=== PATIENT | female | born 1960 | race Caucasian/White ===

== ENCOUNTER 2022-01-19 01:45 | Emergency (ER) | payer OTHER, SELFPAY ==
[2022-01-19 01:25] VITALS: BP 116/93; RESP 18; TEMP 36.8; O2SAT 95; BMI 41.1
[2022-01-19 02:00] VITALS: BP 163/99; PULSE 89; O2SAT 98
--- NOTE | 2022-01-19 02:23 | HMH.EDGENADL ---
ED Disposition Clinical Impression: Acute exacerbation of chronic low back pain Disposition: Home, Self-Care Condition on Discharge: Fair Instructions: DI for Low Back Pain, DI for Chronic Pain -- Adult, Activity May Be Better Than Rest for Low Back Pain Recovery Additional Instructions: You have been evaluated for low back pain. Please try nonnarcotic medication like Tylenol and ibuprofen. Use lidocaine patches. Take Percocet only as needed for severe pain. Follow-up with your primary care doctor this week as scheduled. Try stretching and strengthening exercises. Return to the emergency department at once for any new or worsening symptoms, fevers, worsening pain, numbness or weakness in your legs, difficulty walking or other concerns. Prescriptions: Oxycodone HCl/Acetaminophen [Percocet 10-325 mg Tablet] 1 tab PO Q6H PRN #6 tab PRN Reason: Severe Pain Transmission Status: Sent to [email or web address] Oxycodone HCl/Acetaminophen [Percocet 5/325mg tablet] 1 tab PO Q6H PRN #6 tab PRN Reason: Severe Pain Transmission Status[email or web address] Time of Disposition: 02:30 - Critical Care Critical Care Time: No Attestation: On , the high probability of a clinically significant, sudden or life threatening deterioration of the following system(s) required my full and direct attention, intervention and personal management. The time I documented below is in addition to time spent performing reported procedures but includes the following listed in this critical care notation. Medical Decision Making - Medical Records Medical records reviewed: Yes: I reviewed the patient's medical records. - Eligio Inquiry Pt receiving controlled substance: Yes Eligio was queried for this patient: Yes Risks and benefits of using a controlled substance: were discussed with pt by me Vital Signs: 01/19/22 01:25 Temperature 98.3 F Temperature Source Oral Respiratory Rate 18 Blood Pressure [Right Arm] 116/93 H Blood Pressure Mean [Right Arm] 100 Blood Pressure Position [Right Arm] Sitting 02 Sat by Pulse Oximetry 95 Oxygen Delivery Method Room Air - Lab Data Lab Results 01/19/22 02:30: Urine Color Yellow, Urine Appearance Clear, Urine pH 6.5, Ur Specific [place] 1.010, Urine Protein Negative, Urine Glucose (UA) Negative, Urine Ketones Negative, Urine Blood 2+, Urine Nitrate Negative, Urine Bilirubin Negative, Urine Urobilinogen 2.0, Ur Leukocyte Esterase Negative 01/19/22 02:30: WBC 5.7, RBC 3.59 L, Hgb 10.7 L, Hct 34.1 L, MCV 95.2, MCH 29.7, MCHC 31.2 L, RDW 14.4, Plt Count 330, MPV 7.9, Neut % (Auto) 70.6, Lymph % (Auto) 19.4, Cuming % (Auto) 5.8, Eos % (Auto) 3.3, Baso % (Auto) 1.0, Neut # (Auto) 4.0, Lymph # (Auto) 1.1, Cuming # (Auto) 0.3, Eos # (Auto) 0.2, Baso # (Auto) 0.1 01/19/22 02:30: Sodium 140, Potassium 3.6, Chloride 105, Carbon Dioxide 29, Anion Gap 9.6, BUN 9, Creatinine 0.90, Estimated Creat Clear 102, Estimated GFR 64, Est GFR ( Amer) 77, Glucose 106 H, Calcium 9.1, Total Bilirubin 0.6, AST 26, ALT 17, Alkaline Phosphatase 130 H, Total Protein 6.6, Albumin 3.9, Globulin 2.7, Albumin/Globulin Ratio 1.4 Result diagrams: 01/19/22 02:30 01/19/22 02:30 Orders (Tests/Meds): ED MEDICATIONS Discontinued Medications Generic Name Dose Route Start Last Admin Trade Name Freq PRN Reason Stop Dose Admin Oxycodone/Acetaminophen 1 each 01/19/22 01:29 01/19/22 01:56 Oxycodone 10mg W/Apap 325mg Tablet PO 01/19/22 01:30 1 each ONCE ONE Administration ORDERS Category Date Time Status Urinalysis and Microscopic Stat Lab 01/19/22 02:30 Results Medical Decision Narrative: In summary this is a 61-year-old female with history of chronic back pain and opiate dependence presenting to the emergency department with uncontrolled pain. Patient clinically stable on arrival. Vital signs within normal limits. Most likely diagnosis is acute on chronic pain. Will obtain screening CBC, CM
--- NOTE | 2022-01-19 02:23 | PC.NURSE ---
PT AWARE OF NEED FOR URINE SPECIMEN. PT STATES SHE CAN NOT VOID.
--- NOTE | 2022-01-19 02:25 | PC.NURSE ---
Pt called out to use the restroom, set up hat in toilet and pt ambulated to the BR and tolerated well.
[2022-01-19 02:28] VITALS: BP 184/98; PULSE 84; O2SAT 98
[2022-01-19 02:30] VITALS: BP 172/92; PULSE 84; O2SAT 98
[2022-01-19 02:45] LABS: Microscopic, Urine URINE MICROSCOPIC (MICROSCOPIC)
[2022-01-19 02:48] LABS: Basophils # 0.1 K/mm3 (0-0.2); Eosinophils # 0.2 K/mm3 (0.0-0.4); Eosinophils % 3.3 % (0.1-12.0); Hematocrit 34.1 % (37.0-47.0); Hemoglobin 10.7 g/dL (12.2-16.2); Lymphocytes # 1.1 K/mm3 (0.7-4.5); Lymphocytes % 19.4 % (10-50); Mean Corpuscular HGB Conc 31.2 g/dL (31.8-35.4); Mean Corpuscular Hemoglobin 29.7 pg (27.0-31.2); Mean Corpuscular Volume 95.2 fl (81-99); Mean Platelet Volume 7.9 fl (7.4-10.4); Monocytes # 0.3 K/mm3 (0.1-1.0); Monocytes % 5.8 % (1.7-9.3); Neutrophils % 70.6 % (37.0-80.0); Platelet Count 330 K/mm3 (142-424); Red Blood Count 3.59 M/mm3 (4.20-5.40); Red Cell Distribution Width 14.4 % (11.5-17.5); White Blood Count 5.7 K/mm3 (4.8-10.8)
[2022-01-19 02:50] LABS: Appearance,Urine CLEAR (Clear); Bilirubin,Urine Negative (Negative); Blood, Urine 2+ (Negative); Color,Urine YELLOW (Yellow); Glucose,Urine (UA) Negative (Negative); Ketones,Urine Negative (Negative); Leukocyte Esterase,Urine Negative (Negative); Nitrate,Urine Negative (Negative); PH,Urine 6.5 (5.0-8.5); Protein,Urine Negative (Negative)
[2022-01-19 02:51] LABS: Chloride 105 mmol/L (98-107); Potassium 3.6 mmoL/L (3.5-5.1); Sodium 140 mmol/L (136-145)
[2022-01-19 02:53] LABS: Blood Urea Nitrogen 9 mg/dl (7-17); Creatinine Clearance Estimated 102 mL/min (50-200); Estimated Glomerular Filt Rate 64 ml/min (>60); GFR (African American) 77 ML/MIN (>60)
[2022-01-19 02:54] LABS: Alanine Aminotransferase 17 U/L (12-78); Albumin Level 3.9 g/dl (3.5-5.0); Albumin/Globulin Ratio 1.4 (1.1-1.8); Alkaline Phosphatase 130 U/L (38-126); Anion Gap 9.6 mEq/L (5-15); Aspartate Amino Transferase 26 U/L (14-36); Bilirubin,Total 0.6 mg/dl (0.2-1.3); Carbon Dioxide 29 mmol/L (22.0-30.0); Globulin 2.7 g/dL (1.3-3.2); Total Protein,Serum 6.6 g/dl (6.3-8.2)
[2022-01-19 02:55] LABS: Calcium 9.1 mg/dl (8.4-10.2); Glucose 106 mg/dl (74-100)
[2022-01-19 03:01] VITALS: BP 147/87; PULSE 79; O2SAT 95
--- NOTE | 2022-01-19 03:02 | PC.NURSE ---
PT STATES PAIN HAS IMPROVED. RATES 5/10 AT THIS TIME. PT REPORTS THIS IS HER NORMAL LEVEL OF PAIN.
[2022-01-19 03:20] LABS: Bacteria,Urine 1+ /lpf; RBC,Urine TNTC #/hpf (0-3)
[2022-01-19 03:58] VITALS: BP 148/73; PULSE 87; RESP 18; TEMP 36.6; O2SAT 97
== END 2022-01-19 04:00 | disposition home or self-care (01) ==
LOC: ER 02:57
PROVIDERS: Emergency Provider Emergency Medicine; PCP Emergency Medicine
DX: M54.50 Low back pain, unspecified (principal); G89.29 Other chronic pain; M79.662 Pain in left lower leg; F11.20 Opioid dependence, uncomplicated; Z79.01 Long term (current) use of anticoagulants; Z79.82 Long term (current) use of aspirin; Z79.899 Other long term (current) drug therapy; Z88.0 Allergy status to penicillin; Z88.1 Allergy status to other antibiotic agents; Z88.2 Allergy status to sulfonamides; Z88.3 Allergy status to other anti-infective agents; Z88.8 Allergy status to other drugs, medicaments and biological substances; Z91.041 Radiographic dye allergy status
CPT/HCPCS: 80053; 81001; 85025; 99283

== ENCOUNTER → 2022-01-25 10:03 | Outpatient (CLI) | payer OTHER, SELFPAY ==
[2022-01-22 17:42] LABS: Amphetamine/Metha Screen,Urine Negative ng/ml (<1000)
[2022-01-22 17:43] LABS: Barbiturates Screen,Urine Negative ng/ml (<200); Benzodiazepines Screen,Urine Negative ng/ml (<200)
[2022-01-22 17:44] LABS: Cannabinoid Screen,Urine Negative ng/ml (<50)
[2022-01-22 17:45] LABS: Cocaine Screen,Urine Negative ng/ml (<300); Methadone Screen,Urine Negative ng/ml (<300)
[2022-01-22 17:46] LABS: Opiate Screen,Urine Positive ng/ml (<300)
[2022-01-22 17:47] LABS: Phencyclidine Screen,Urine Negative ng/ml (<25)
[2022-01-25 11:01] LABS: Basophils # 0.1 K/mm3 (0-0.2); Basophils % 1.4 % (0.1-2.0); Eosinophils # 0.1 K/mm3 (0.0-0.4); Eosinophils % 2.1 % (0.1-12.0); Hematocrit 35.4 % (37.0-47.0); Hemoglobin 11.2 g/dL (12.2-16.2); Lymphocytes # 0.8 K/mm3 (0.7-4.5); Lymphocytes % 15.9 % (10-50); Mean Corpuscular HGB Conc 31.7 g/dL (31.8-35.4); Mean Corpuscular Hemoglobin 29.9 pg (27.0-31.2); Mean Corpuscular Volume 94.2 fl (81-99); Mean Platelet Volume 7.8 fl (7.4-10.4); Monocytes # 0.2 K/mm3 (0.1-1.0); Neutrophils # 3.8 K/mm3 (1.8-7.8); Neutrophils % 76.6 % (37.0-80.0); Platelet Count 380 K/mm3 (142-424); Red Blood Count 3.76 M/mm3 (4.20-5.40); Red Cell Distribution Width 14.8 % (11.5-17.5); White Blood Count 4.9 K/mm3 (4.8-10.8)
[2022-01-25 11:11] LABS: INR 1.79 (0.9-1.1); Prothrombin Time 19.4 seconds (10.1-12.5)
[2022-01-25 11:15] LABS: Alanine Aminotransferase 18 U/L (12-78); Albumin Level 4.2 g/dl (3.5-5.0); Albumin/Globulin Ratio 1.6 (1.1-1.8); Alkaline Phosphatase 161 U/L (38-126); Anion Gap 11.9 mEq/L (5-15); Aspartate Amino Transferase 27 U/L (14-36); Blood Urea Nitrogen 9 mg/dl (7-17); Calcium 9.8 mg/dl (8.4-10.2); Carbon Dioxide 31 mmol/L (22.0-30.0); Chloride 100 mmol/L (98-107); Chol/HDL Ratio 2.6 (1-3.5); Cholesterol 109 mg/dl (140-200); Estimated Glomerular Filt Rate 73 ml/min (>60); GFR (African American) 88 ML/MIN (>60); Globulin 2.6 g/dL (1.3-3.2); Glucose 112 mg/dl (74-100); HDL Cholesterol 42 mg/dl (40-60); Potassium 3.9 mmoL/L (3.5-5.1); Sodium 139 mmol/L (136-145); Total Protein,Serum 6.8 g/dl (6.3-8.2); Triglycerides 75 mg/dl (30-150); VLDL Cholesterol 15 mg/dL (0-40)
[2022-01-25 11:27] LABS: Direct LDL Cholesterol 49.55 mg/dL (100-129)
[2022-01-25 11:33] LABS: 25-OH Vitamin D, Total 20.2 ng/mL (30-100)
[2022-01-25 11:34] LABS: T4 (Thyroxine) 11.4 ug/dl (5.53-11.0)
[2022-01-25 11:47] LABS: Thyroid Stimulating Hormone 2.65 uIU/mL (0.465-4.68)
== END ==
PROVIDERS: Visit Provider Nurse Practitioner Family
DX: Z00.00 Encounter for general adult medical examination without abnormal findings (principal); M54.50 Low back pain, unspecified; M79.605 Pain in left leg; E55.9 Vitamin D deficiency, unspecified; Z79.899 Other long term (current) drug therapy
CPT/HCPCS: 36415; 80053; 80061; 80305; 82306; 84436; 84443; 85025; 85610

== ENCOUNTER 2022-02-01 13:07 | Outpatient (CLI) | payer OTHER, SELFPAY ==
[2022-02-01 14:02] LABS: PHA INR Fingerstick 1.6 (0.9-1.1)
== END 2022-02-01 14:04 | disposition home or self-care (01) ==
LOC: ACC 13:09
PROVIDERS: PCP Emergency Medicine; Visit Provider Emergency Medicine
DX: Z51.81 Encounter for therapeutic drug level monitoring (principal); Z79.01 Long term (current) use of anticoagulants; I48.91 Unspecified atrial fibrillation
CPT/HCPCS: 85610; 99211; G0463

== ENCOUNTER 2022-02-08 14:16 | Outpatient (CLI) | payer OTHER, SELFPAY ==
[2022-02-08 15:42] LABS: PHA INR Fingerstick 1.9 (0.9-1.1)
== END 2022-02-08 15:51 | disposition home or self-care (01) ==
LOC: ACC 14:19
PROVIDERS: PCP Emergency Medicine; Visit Provider Nurse Practitioner Family
DX: Z51.81 Encounter for therapeutic drug level monitoring (principal); Z79.01 Long term (current) use of anticoagulants; I48.91 Unspecified atrial fibrillation
CPT/HCPCS: 85610; 99211; G0463

== ENCOUNTER 2022-02-16 13:10 | Outpatient (CLI) | payer OTHER, SELFPAY ==
--- NOTE | 2022-03-02 11:12 | HMH.PHAINT ---
ACC-PATIENT CALLED YESTERDAY ABOUT APPOINTMENT ON 03/02/22. PATIENT CURRENTLY LIVING IN [place] WITH FRIENDS AND CAN NOT GET RIDE TO [place]. PATIENT HAD SPOKEN WITH MD OFFICE ABOUT THIS AND WAS TOLD TO FIND A PLACE IN [place] TO GET INR CHECKED PER PATIENT.
== END 2022-02-16 13:57 | disposition home or self-care (01) ==
LOC: ACC 13:11
PROVIDERS: PCP Emergency Medicine; Visit Provider Nurse Practitioner Family
DX: Z51.81 Encounter for therapeutic drug level monitoring (principal); Z79.01 Long term (current) use of anticoagulants; I48.91 Unspecified atrial fibrillation
CPT/HCPCS: 85610; 99211; G0463

== ENCOUNTER → 2022-02-23 10:18 | Outpatient (CLI) | payer OTHER, SELFPAY ==
--- NOTE | 2022-02-23 10:18 | MM_ITS ---
PROCEDURE INFORMATION: Exam: Bilateral Screening 3D Mammography Exam date and time: 02/23/2022 10:18 AM Age: 61 years old Clinical indication: Screening examination TECHNIQUE: Imaging protocol: Bilateral Screening tomosynthesis and 2D mammography including computer-aided detection (CAD) when performed. COMPARISON: MAMMO DIGITAL SCREENING BILATERAL W CAD 01/26/2021 5:54 PM FINDINGS: MAMMOGRAPHY: Breast composition: The breasts are heterogeneously dense, which may obscure small masses. Mass: No suspicious masses. Architectural distortion: No suspicious distortion. Calcifications: No suspicious calcifications. Asymmetric density: None. Skin thickening: None. Axillary adenopathy: None. IMPRESSION: No mammographic evidence of malignancy. Annual screening is recommended unless otherwise clinically indicated. ASSESSMENT: BI-RADS Category 1: Negative
== END ==
PROVIDERS: PCP Emergency Medicine; Visit Provider Emergency Medicine
DX: Z12.31 Encounter for screening mammogram for malignant neoplasm of breast (principal)
CPT/HCPCS: 77063; 77067

== ENCOUNTER 2022-11-09 13:11 | Emergency (ER) | payer OTHER, SELFPAY ==
[2022-11-09 13:11] VITALS: BP 162/79; PULSE 98; RESP 19; TEMP 36.6; O2SAT 97; BMI 41.6
--- NOTE | 2022-11-09 13:44 | XR_ITS ---
FINAL REPORT CLINICAL HISTORY: pain FINDINGS: Left shoulder Four views were obtained. There is mild AC joint degenerative change. There is irregularity of the greater tuberosity, small subacute fracture is not excluded. There is inferior subluxation of the humerus, may represent a joint effusion. IMPRESSION: Irregularity of the greater tuberosity, small subacute fracture is not excluded. Reviewed, Interpreted and Dictated by Dereje Black III, MD Transcribed by Mariana Mota Authenticated and [facility]
--- NOTE | 2022-11-09 14:47 | PC.NURSE ---
contacted rad to check on status of xray results, states sending preliminary down at this time.
--- NOTE | 2022-11-09 14:47 | HMH.EDGENADL ---
Discharge Plan Disposition Patient Disposition: Home, Self-Care Condition: Fair Prescriptions Prescriptions: No Action gabapentin 600 mg tablet 600 mg PO TID Qty: 90 1RF oxycodone-acetaminophen 10-325 mg tablet 1 tab PO TID Qty: 90 0RF cyclobenzaprine 10 mg tablet 10 mg PO TID Qty: 90 2RF folic acid 1 mg tablet 1 mg PO DAILY Qty: 90 0RF polyethylene glycol 3350 [Miralax] 17 gram/dose powder 17 g PO DAILY Qty: 238 3RF cyanocobalamin (vitamin B-12) 1,000 mcg/mL solution 100 mcg SQ QMONTH Qty: 10 1RF polyethylene glycol 3350 [Miralax] 17 gram/dose powder 17 g PO DAILY Qty: 510 0RF warfarin 7.5 mg tablet See Rx Instructions .ROUTE .COMPLEX Qty: 30 1RF Dose Instruction: TAKE 1 TABLET DAILY OR DIRECTED Rx Instructions: TAKE 1 TABLET DAILY OR DIRECTED spironolactone 25 mg tablet See Rx Instructions .ROUTE .COMPLEX Qty: 90 0RF Dose Instruction: TAKE ONE TABLET BY MOUTH DAILY Rx Instructions: TAKE ONE TABLET BY MOUTH DAILY atorvastatin 40 mg tablet See Rx Instructions .ROUTE .COMPLEX Qty: 90 0RF Dose Instruction: TAKE ONE TABLET BY MOUTH DAILY Rx Instructions: TAKE ONE TABLET BY MOUTH DAILY aspirin 81 mg tablet,delayed release (DR/EC) See Rx Instructions .ROUTE .COMPLEX Qty: 90 0RF Dose Instruction: TAKE ONE TABLET BY MOUTH DAILY Rx Instructions: TAKE ONE TABLET BY MOUTH DAILY allopurinol 100 mg tablet See Rx Instructions .ROUTE .COMPLEX Qty: 90 0RF Dose Instruction: TAKE ONE TABLET BY MOUTH DAILY Rx Instructions: TAKE ONE TABLET BY MOUTH DAILY pantoprazole 40 mg tablet,delayed release (DR/EC) See Rx Instructions .ROUTE .COMPLEX Qty: 30 2RF Dose Instruction: TAKE ONE TABLET BY MOUTH DAILY Rx Instructions: TAKE ONE TABLET BY MOUTH DAILY Referrals Follow up/Referrals: Alexander Huffman APRN [Primary Care Provider] - See instructions Activity Restrictions/Add. Instructions Additional Instructions/Restrictions: Follow-up with orthopedics, they will call you or you can call them to schedule an appointment. You will require an MRI of your left shoulder. Have them review the MR concerns on your medical card you should today. If you have any other concerning signs or symptoms, return to the ER for further evaluation. Clinical Impressions Clinical Impression: Hemarthrosis of left shoulder Discharge ED Provider: Manan Andersen General Adult HPI General Chief complaint: PAIN Stated complaint: LT shoulder pain Time Seen by Provider: 11/09/22 13:25 Mode of Arrival: Ambulatory Source of Information: Patient Limitations: No Limitations Description of Symptoms (Recalled from ER Triage Doc. by RN): 62 F presents with left shoulder pain/swelling after having a dislocation on Tuesday. This was reduced at [facility] ER and patient was discharged home. As of this afternoon she reports increased pain, decreased ROM, and increased swelling. Negative ecchymosis. Positive pulses present History of Present Illness HPI narrative: This is a 62-year-old female with history of hyperlipidemia, obesity, mechanical heart valve replacement currently on warfarin presenting with left shoulder pain. Patient states that left shoulder pain began acutely on 11/02, she was seen in outside hospital where she was told it was dislocated and they were able to put it back in place. Since that time, she has discharged with oxycodone and has been dealing with pain. She has had significantly worsening pain since that time that has been refractory to oxycodone. Denies any other trauma, neurologic deficits, or any other concerns at this time. Related Data Previous Rx's Medication Instructions Recorded gabapentin 600 mg tablet 600 mg PO TID #90 tabs 02/01/22 oxycodone-acetaminophen 10 mg-325 1 tab PO TID #90 tabs 02/01/22 mg tablet cyclobenzaprine 10 mg tablet 10 mg PO TID #90 tabs 02/04/22 folic ac
[2022-11-09 14:48] VITALS: BP 143/76; PULSE 93; RESP 18; O2SAT 96
--- NOTE | 2022-11-09 14:48 | CT_ITS ---
FINAL REPORT CLINICAL HISTORY: disloaction, concern for fracture vs hemarthrosis FINDINGS: Technique: Axial images through the left shoulder were performed by computed tomography. Sagittal and coronal reconstruction images were performed. This study was performed with techniques to keep radiation doses as low as reasonably achievable (ALARA). Individualized dose reduction techniques using automated exposure control or adjustment of mA and/or kV according to the patient's size were employed. No fracture is identified. No dislocation identified. There are mild degenerative changes. There is a moderate probable joint effusion. There is a 6.5 cm mass deep to the anterior deltoid that may represent a hematoma or neoplasm. The subscapularis muscle is enlarged with a possible mass in or adjacent to it a could represent hemorrhage versus fluid collection. IMPRESSION: No acute fracture. Probable moderate joint effusion. 6.5 cm mass deep to the anterior deltoid could represent hematoma or neoplasm. Hemorrhage versus fluid collection in or adjacent to an enlarged subscapularis muscle. This could be further evaluated with MRI shoulder without contrast. Reviewed, Interpreted and Dictated by Dereje Black III, MD Transcribed by Jerry Leblanc Authenticated and [facility]
--- NOTE | 2022-11-09 14:55 | PC.NURSE ---
rad notified of ct order
--- NOTE | 2022-11-09 15:12 | PC.NURSE ---
pt back from rad
[2022-11-09 15:17] LABS: Basophils # 0.1 K/mm3 (0-0.2); Basophils % 0.7 % (0.1-2.0); Eosinophils # 0.4 K/mm3 (0.0-0.4); Eosinophils % 4.4 % (0.1-12.0); Hematocrit 38.1 % (37.0-47.0); Hemoglobin 12.6 g/dL (12.2-16.2); Lymphocytes # 1.2 K/mm3 (0.7-4.5); Lymphocytes % 12.3 % (10-50); Mean Corpuscular HGB Conc 33.1 g/dL (31.8-35.4); Mean Corpuscular Hemoglobin 29.9 pg (27.0-31.2); Mean Corpuscular Volume 90.1 fl (81-99); Monocytes # 0.7 K/mm3 (0.1-1.0); Monocytes % 7.2 % (1.7-9.3); Neutrophils # 7.1 K/mm3 (1.8-7.8); Neutrophils % 75.4 % (37.0-80.0); Platelet Count 438 K/mm3 (142-424); Red Blood Count 4.23 M/mm3 (4.20-5.40); Red Cell Distribution Width 16.2 % (11.5-17.5); White Blood Count 9.5 K/mm3 (4.8-10.8)
[2022-11-09 15:49] LABS: Chloride 99 mmol/L (98-107); Potassium 4.1 mmoL/L (3.5-5.1); Sodium 135 mmol/L (136-145)
[2022-11-09 15:52] LABS: Anion Gap 10.1 mEq/L (5-15); Blood Urea Nitrogen 18 mg/dl (7-17); Carbon Dioxide 30 mmol/L (22.0-30.0); Creatinine Clearance Estimated 59 mL/min (50-200); Estimated Glomerular Filt Rate 73 ml/min (>60); GFR (African American) 88 ML/MIN (>60)
[2022-11-09 15:53] LABS: Calcium 9.2 mg/dl (8.4-10.2); Glucose 104 mg/dl (74-100)
[2022-11-09 16:47] VITALS: BP 123/90; PULSE 71; RESP 19; TEMP 36.8; O2SAT 97
== END 2022-11-09 17:09 | disposition home or self-care (01) ==
PROVIDERS: Emergency Provider Emergency Medicine; PCP Nurse Practitioner Family
DX: M25.012 Hemarthrosis, left shoulder (principal); E78.5 Hyperlipidemia, unspecified; Z79.01 Long term (current) use of anticoagulants; Z82.49 Family history of ischemic heart disease and other diseases of the circulatory system; F17.210 Nicotine dependence, cigarettes, uncomplicated
CPT/HCPCS: 36415; 73030; 73200; 80048; 85025; 96374; 99285

== ENCOUNTER 2023-01-12 15:13 | Outpatient (CLI) | payer OTHER, SELFPAY ==
--- NOTE | 2023-01-12 15:41 | MR_ITS ---
PROCEDURE INFORMATION: Exam: MR Lumbar Spine Without Contrast Exam date and time: 01/12/2023 4:04 PM Age: 62 years old Clinical indication: Low back pain; Additional info: Back pain x 30 years. TECHNIQUE: Imaging protocol: Magnetic resonance imaging of the lumbar spine without contrast. COMPARISON: No relevant prior studies available. FINDINGS: Bones/joints: There is preservation of vertebral alignment. There is preservation of vertebral body heights. No marrow replacing process. There is mild bilateral neural foraminal narrowing. Spinal cord: Conus medullaris and cauda equina nerve roots are unremarkable T12-L1: Diffuse disc bulge and facet arthropathy noted. No significant spinal canal stenosis. There is no significant neural foraminal narrowing. L1-L2: Caudally migrated central disc protrusion disc bulge and facet arthropathy noted. The right lateral recess is narrowed. No significant spinal canal stenosis. There is moderate bilateral neural foraminal narrowing. L2-L3: Diffuse disc bulge and facet arthropathy noted. There is mild spinal canal stenosis. L3-L4: Diffuse disc bulge and facet arthropathy noted. No significant spinal canal stenosis. There is no significant neural foraminal narrowing. L4-L5: Diffuse disc bulge and facet arthropathy noted. No significant spinal canal stenosis. There is mild bilateral neural foraminal narrowing. L5-S1: Diffuse disc bulge and facet arthropathy noted. No significant spinal canal stenosis. There is no significant neural foraminal narrowing. Soft tissues: Unremarkable. IMPRESSION: Multilevel degenerative changes more pronounced at L1-L2, where there is a caudally migrated disc protrusion and moderate bilateral neural foramina narrowing.
[2023-01-12 15:52] LABS: PHA INR Fingerstick 1.9 (0.9-1.1)
== END 2023-01-12 15:56 ==
LOC: RAD 15:15
PROVIDERS: PCP Emergency Medicine; Visit Provider Emergency Medicine
DX: M54.50 Low back pain, unspecified (principal); Z51.81 Encounter for therapeutic drug level monitoring; Z79.01 Long term (current) use of anticoagulants
CPT/HCPCS: 72148; 76376; 85610; 99211; G0463

== ENCOUNTER 2023-01-26 14:14 | Outpatient (CLI) | payer OTHER, SELFPAY ==
[2023-01-26 15:06] LABS: PHA INR Fingerstick 2.8 (0.9-1.1)
== END 2023-01-26 15:09 ==
LOC: ACC 14:15
PROVIDERS: PCP Emergency Medicine; Visit Provider Emergency Medicine
DX: Z51.81 Encounter for therapeutic drug level monitoring (principal); Z79.01 Long term (current) use of anticoagulants; I48.91 Unspecified atrial fibrillation
CPT/HCPCS: 85610; 99211; G0463

== ENCOUNTER 2023-02-17 10:54 | Outpatient (CLI) | payer OTHER, SELFPAY ==
[2023-02-17 15:32] LABS: PHA INR Fingerstick 3.4 (0.9-1.1)
== END 2023-02-17 15:36 ==
LOC: ACC 10:54
PROVIDERS: PCP Emergency Medicine; Visit Provider Emergency Medicine
DX: Z51.81 Encounter for therapeutic drug level monitoring (principal); Z79.01 Long term (current) use of anticoagulants; I48.91 Unspecified atrial fibrillation
CPT/HCPCS: 85610; 99211; G0463

== ENCOUNTER → 2023-03-14 23:35 | Outpatient (CLI) | payer OTHER, SELFPAY ==
[2023-03-14 20:59] LABS: Amphetamine/Metha Screen,Urine Negative ng/ml (<1000)
[2023-03-14 21:00] LABS: Barbiturates Screen,Urine Negative ng/ml (<200)
[2023-03-14 21:04] LABS: Benzodiazepines Screen,Urine Negative ng/ml (<200); Cannabinoid Screen,Urine Negative ng/ml (<50)
[2023-03-14 21:05] LABS: Cocaine Screen,Urine Negative ng/ml (<300); Methadone Screen,Urine Negative ng/ml (<300)
[2023-03-14 21:06] LABS: Opiate Screen,Urine Negative ng/ml (<300)
[2023-03-14 21:07] LABS: Phencyclidine Screen,Urine Negative ng/ml (<25)
== END ==
PROVIDERS: PCP Emergency Medicine; Visit Provider Emergency Medicine
DX: N39.0 Urinary tract infection, site not specified (principal); Z79.899 Other long term (current) drug therapy
CPT/HCPCS: 80305; 87086

== ENCOUNTER 2023-03-27 21:06 | Emergency (ER) | payer OTHER, SELFPAY ==
--- NOTE | 2023-03-27 21:04 | ECG_ITS ---
APPROVED REPORT Exam: Resting ECG HR:79 bpm ECG Measurements Heart Rate 79 AXES DC 213 P 104 QRSd 102 QRS 96 QT 419 T 90 QTc 454 Conclusion SINUS RHYTHM WITH FIRST DEGREE AV BLOCK WITH OCCASIONAL SUPRAVENTRICULAR PREMATURE COMPLEX ABNORMAL ECG UNCONFIRMED REPORT Electronically signed by : Jersey Padron MD 03/28/2023 14:01:49
[2023-03-27 21:06] VITALS: BP 119/68; PULSE 75; RESP 19; TEMP 36.8; O2SAT 93; BMI 44.1
--- NOTE | 2023-03-27 21:12 | PC.NURSE ---
Pt provided with pillow and warm blanket
--- NOTE | 2023-03-27 21:20 | XR_ITS ---
PROCEDURE INFORMATION: Exam: XR Chest Exam date and time: 03/27/2023 9:31 PM Age: 63 years old Clinical indication: Other: Syncope TECHNIQUE: Imaging protocol: Radiologic exam of the chest. Views: 1 view. COMPARISON: CR CXR CHEST(2 VIEWS-NOT PORTABLE) 08/24/2016 11:03 AM FINDINGS: Lungs: There is mild right lower lobe infiltrate versus atelectasis. Left lung is clear. Pleural spaces: There has developed small right pleural effusion. Heart/Mediastinum: Cardiac silhouette is normal in size for technique Bones/joints: Sternotomy wires and prosthetic heart valve remain in place. IMPRESSION: Small right pleural effusion with mild right lower lobe infiltrate versus atelectasis
--- NOTE | 2023-03-27 21:20 | CT_ITS ---
PROCEDURE INFORMATION: Exam: CT Head Without Contrast Exam date and time: 03/27/2023 9:42 PM Age: 63 years old Clinical indication: Other: Syncope TECHNIQUE: Imaging protocol: Computed tomography of the head without contrast. Radiation optimization: All CT scans at this facility use at least one of these dose optimization techniques: automated exposure control; mA and/or kV adjustment per patient size (includes targeted exams where dose is matched to clinical indication); or iterative reconstruction. REPORTING DATA: Count of CT and Cardiac NM exams in prior 12 months: This patient has received [address] and 0 known cardiac nuclear medicine studies in the 12 months prior to the current study. COMPARISON: No relevant prior studies available. FINDINGS: Brain: Normal. No hemorrhage. Unremarkable white matter. No mass effect. Cerebral ventricles: No ventriculomegaly. Paranasal sinuses: Visualized sinuses are unremarkable. No fluid levels. Mastoid air cells: Visualized mastoid air cells are well aerated. Bones/joints: Unremarkable. No acute fracture. Soft tissues: Unremarkable. IMPRESSION: No acute intracranial abnormality.
[2023-03-27 21:29] LABS: Basophils % 0.4 % (0.1-2.0); Eosinophils # 0.1 K/mm3 (0.0-0.4); Eosinophils % 1.6 % (0.1-12.0); Hematocrit 40.5 % (37.0-47.0); Hemoglobin 12.2 g/dL (12.2-16.2); Lymphocytes # 0.6 K/mm3 (0.7-4.5); Mean Corpuscular HGB Conc 30.2 g/dL (31.8-35.4); Mean Corpuscular Hemoglobin 29.4 pg (27.0-31.2); Mean Corpuscular Volume 97.3 fl (81-99); Mean Platelet Volume 8.2 fl (7.4-10.4); Monocytes # 0.3 K/mm3 (0.1-1.0); Monocytes % 5.2 % (1.7-9.3); Neutrophils # 4.1 K/mm3 (1.8-7.8); Neutrophils % 80.8 % (37.0-80.0); Platelet Count 225 K/mm3 (142-424); Red Blood Count 4.16 M/mm3 (4.20-5.40); Red Cell Distribution Width 17.6 % (11.5-17.5)
--- NOTE | 2023-03-27 21:33 | PC.NURSE ---
Pt gone to RAD via stretcher
[2023-03-27 21:35] LABS: Microscopic, Urine URINE MICROSCOPIC (MICROSCOPIC)
--- NOTE | 2023-03-27 21:35 | PC.NURSE ---
Standby assist to bedside commode. Patient mostly steady up and down. Denies feelings of dizziness when moving; however, has more SOA
[2023-03-27 21:37] LABS: Appearance,Urine SL CLOUDY (Clear); Blood, Urine 3+ (Negative); Color,Urine DK YELLOW (Yellow); Glucose,Urine (UA) TRACE (Negative); Ketones,Urine Negative (Negative); Leukocyte Esterase,Urine Negative (Negative); Nitrate,Urine Negative (Negative); Protein,Urine 2+ (Negative); Urobilinogen,Urine >=8.0 EU/dl (0.2)
[2023-03-27 21:38] LABS: Bilirubin,Urine 1+ (Negative)
[2023-03-27 21:42] LABS: Alanine Aminotransferase 20 U/L (12-78); Albumin Level 3.9 g/dl (3.5-5.0); Albumin/Globulin Ratio 1.1 (1.1-1.8); Alkaline Phosphatase 208 U/L (38-126); Aspartate Amino Transferase 39 U/L (14-36); Bilirubin,Total 1.6 mg/dl (0.2-1.3); Blood Urea Nitrogen 12 mg/dl (7-17); Calcium 9.5 mg/dl (8.4-10.2); Carbon Dioxide 28 mmol/L (22.0-30.0); Chloride 104 mmol/L (98-107); Creatinine Clearance Estimated 58 mL/min (50-200); Estimated Glomerular Filt Rate 56 ml/min (>60); GFR (African American) 68 ML/MIN (>60); Globulin 3.7 g/dL (1.3-3.2); Glucose 139 mg/dl (74-100); Sodium 139 mmol/L (136-145); Total Protein,Serum 7.6 g/dl (6.3-8.2)
[2023-03-27 21:44] LABS: Activated Partial Thrombo Time 53.9 seconds (22.8-30.6)
--- NOTE | 2023-03-27 21:45 | PC.NURSE ---
Pt returned from RAD
[2023-03-27 21:50] LABS: Bacteria,Urine Trace /lpf; Squamous Epithelial Cell,Urine 20-50 #/hpf (0-5); WBC,Urine Occasional #/hpf (0-3)
[2023-03-27 21:53] LABS: Troponin I 0.02 ng/ml (0.00-0.034)
--- NOTE | 2023-03-27 21:55 | PC.NURSE ---
ROULA CHECKED ON PT ADJUSTED BED NOTHING ELSE NEEDED AT THIS TIME, CALL LIGHT AT BS
[2023-03-27 22:01] LABS: NT Pro Brain Natriuretic Pep. 515 pg/mL (0-125)
[2023-03-27 22:02] VITALS: BP 129/94; PULSE 76; O2SAT 97
[2023-03-27 22:04] LABS: Prothrombin Time 54.2 seconds (10.1-12.5)
[2023-03-27 22:05] LABS: INR 5.53 (0.9-1.1)
--- NOTE | 2023-03-27 22:05 | PC.NURSE ---
notified miguel ángel of critical PT 15.4 and INR 5.53
--- NOTE | 2023-03-27 22:09 | PC.NURSE ---
PT IS SLEEPING IN BED NOTHING NEEDED , CALL LIGHT AT BS
[2023-03-27 22:31] VITALS: BP 114/90; PULSE 81; O2SAT 96
[2023-03-27 23:01] VITALS: BP 127/90; PULSE 81; RESP 18; O2SAT 96
[2023-03-27 23:31] VITALS: BP 124/93; PULSE 80; RESP 16; O2SAT 96
--- NOTE | 2023-03-27 23:33 | HMH.EDDIZZ ---
Discharge Plan Disposition Patient Disposition: Home, Self-Care Chief Complaint: Syncope Prescriptions Prescriptions: No Action albuterol sulfate 2.5 mg/0.5 mL solution for nebulization 5 mg inhalation Q6H gabapentin 800 mg tablet 800 mg PO 4XD albuterol sulfate [Proventil HFA] 90 mcg/actuation HFA aerosol inhaler 2 puff inhalation Q12H PRN (Reason: shortness of breath or wheezing) Qty: 8.5 2RF potassium chloride 10 mEq capsule, extended release 20 meq PO DAILY ferrous sulfate 324 mg (65 mg iron) tablet,delayed release (DR/EC) 324 mg PO DAILY cyclobenzaprine 10 mg tablet 10 mg PO TID atorvastatin 40 mg tablet See Rx Instructions .ROUTE .COMPLEX Rx Instructions: TAKE 1 TABLET BY MOUTH EVERY DAY bisoprolol fumarate 5 mg tablet 5 mg PO DAILY oxycodone-acetaminophen 10-325 mg tablet 1 tab PO TID pantoprazole 40 mg tablet,delayed release (DR/EC) See Rx Instructions .ROUTE .COMPLEX Rx Instructions: TAKE 1 TABLET BY MOUTH DAILY. ropinirole 0.5 mg tablet 0.5 mg PO HS Rx Instructions: administer 1-3 hours before bedtime folic acid 1 mg tablet 1 mg PO DAILY polyethylene glycol 3350 [Miralax] 17 gram/dose powder 17 g PO DAILY duloxetine 60 mg capsule,delayed release(DR/EC) See Rx Instructions .ROUTE .COMPLEX Rx Instructions: TAKE 1 CAPSULE BY MOUTH EVERY DAY lactulose 20 gram/30 mL solution 20 g PO DAILY Stiolto Respimat 2.5-2.5 mcg/actuation mist See Rx Instructions .ROUTE .COMPLEX Rx Instructions: INHALE 2 PUFFS BY MOUTH ONCE DAILY warfarin 10 mg tablet See Rx Instructions .ROUTE .COMPLEX Rx Instructions: Doctor's Order warfarin 5 mg tablet See Rx Instructions .ROUTE .COMPLEX Rx Instructions: Doctor's Order Referrals Follow up/Referrals: Douglas Huynh MD [Primary Care Provider] - See instructions Clinical Impressions Clinical Impression: Vasovagal syncope, Dizziness Instructions Patient Instructions: DI for Syncope in Adults (Fainting) Discharge ED Provider: Amina (ED)Douglas Dizzy HPI General Chief Complaint: Syncope Stated Complaint: syncope Time Seen by Provider: 03/27/23 23:00 Mode of Arrival: EMS Source of Information: Patient, EMS and Medical Record Limitations: No Limitations Description of Symptoms (Recalled from ER Triage Doc. by RN): 63 F presents from home via EMS with c/o feeling dizzy. EMS arrived to patient sitting in her car a/o x3. Patient stated she had recently started a new medication that is a beta lam. When EMS attempted to help patient stand up from her vehicle she had a witnessed syncopal episode. SHe did not fall, was assisted to sitting position. Patient immediately came back to her normal. BP was unable to be taken until she was in the ambulance. Her systolic was 140 and stayed 120-140 in route. NSR rhythm on monitor. Patient denies any pain, dizziness, or SOA on arrival. History of Present Illness HPI Narrative: reports feeling dizzyness and with standing brief syncopal episode - pt has been compliant with meds MD complaint: dizziness and lightheadedness Onset (ago): hour(s) Timing: waxing/waning History of similar episodes: No History of trauma: No Severity: moderate Relieving factors: remaining still Associated symptoms: denies other symptoms Related Data Home Medications Medication Instructions Recorded Confirmed albuterol sulfate 2.5 mg/0.5 mL 5 mg inhalation Q6H Breathing 12/27/22 03/27/23 solution for nebulization Problems gabapentin 800 mg tablet 800 mg PO 4XD Pain 03/14/23 03/27/23 atorvastatin 40 mg tablet See Rx Instructions .Route 03/27/23 03/27/23 .COMPLEX High Cholesterol bisoprolol fumarate 5 mg tablet 5 mg PO DAILY Heart Rhythm 03/27/23 03/27/23 cyclobenzaprine 10 mg tablet 10 mg PO TID Muscle spasm 03/27/23 03/27/23 duloxetine 60 mg capsule,delayed See Rx Instructions .Route
[2023-03-28 00:01] VITALS: BP 113/80; PULSE 83; RESP 18; O2SAT 95
[2023-03-28 00:31] VITALS: BP 105/74; PULSE 82; RESP 20; O2SAT 97
[2023-03-28 00:38] LABS: Troponin I 0.02 ng/ml (0.00-0.034)
[2023-03-28 01:29] VITALS: BP 127/63; PULSE 71; RESP 20; TEMP 36.6; O2SAT 96
== END 2023-03-28 01:29 | disposition home or self-care (01) ==
PROVIDERS: Emergency Provider Emergency Medicine; PCP Emergency Medicine
DX: R55 Syncope and collapse (principal); R42 Dizziness and giddiness; I50.9 Heart failure, unspecified; J44.9 Chronic obstructive pulmonary disease, unspecified; G47.33 Obstructive sleep apnea (adult) (pediatric); F17.200 Nicotine dependence, unspecified, uncomplicated
CPT/HCPCS: 70450; 71045; 80053; 81001; 83735; 83880; 84484; 85025; 85610; 85730; 93005; 96361; 96374; 99285; J2405

== ENCOUNTER → 2023-03-30 09:30 | Outpatient (CLI) | payer OTHER, SELFPAY ==
--- NOTE | 2023-03-30 10:10 | NM_ITS ---
APPROVED REPORT Exam: Nuclear Stress Test Indication: soa..syncope..fatigue Patient Location: Outpatient Stress Tech: Veronica Pappas NM Tech:Lashae HarmanORLANDO RT(R)(N) Ht: 5 ft 8 in Wt: 290 lbs Bra Size: d HR: 82 bpm BP: 166/69 mmHg BSA: 2.39 m2 TID: 1.31 BMI: 44.0 History: soa..syncope..fatigue Procedure: Patient received 0.4 mg of intravenous Lexiscan, resting heart rate 82 bpm, resting blood pressure 166/69 mmHg, with Lexiscan maximum heart rate achieved was 90 bpm which is 85 % of the maximum predicted heart rate and blood pressure was 181/86 mmHg. With Lexiscan, patient denied any complaint of chest pain. Cardiac Stress and Resting SPECT Images: Cardiac Stress and Resting SPECT images were obtained using technetium 99m Myoview 32.1 mCi stress and 10.19 mCi at rest. The patient was unable to lie on her abdomen, and thereby prone stress imaging could not be obtained. This may affect the diagnostic interpretation of the study findings. Resting and stress imaging in supine position demonstrate no definite fixed or reversible perfusion defects. There is increase in transient ischemic dilatation ratio (TID 1.31), which may be suggestive of possible balanced ischemia or multivessel disease. Gated imaging demonstrates moderate reduction in global LV function. The LV septum appears asynchronous. LVEF is calculated at 35%. Conclusion: The patient was unable to lie on her abdomen, and thereby prone stress imaging could not be obtained. This may affect the diagnostic interpretation of the study findings. Resting and stress imaging in supine position demonstrate no definite fixed or reversible perfusion defects. There is increase in transient ischemic dilatation ratio (TID 1.31), which may be suggestive of possible balanced ischemia or multivessel disease. Gated imaging demonstrates moderate reduction in global LV function. The LV septum appears asynchronous. LVEF is calculated at 35%. Electronically signed by : Jennifer Herzog, 04/03/2023 15:20:51
--- NOTE | 2023-03-30 13:46 | CA_ITS ---
APPROVED REPORT Exam: Pharmacologic Technologist: Veronica Pappas Ht: 5 ft 8 in Wt: 296 lbs BSA: 2.41 m2 HR: 84 bpm BP: 166/69 mmHg Rhythm: NSR Indications: CHF , Shortness of Air Medical History Medications: Warfarin,,,,, Gabapentin,,,,, Pantoprazole,,,,, Atorvastatin,,,,, Ropinirole,,,,, FOLIC ACID,,,,, Albuterol,,,,, DulOXETINE,,,,, BisOPROLOL,,,,, Cyclobenzaprine,,,,, SpirOnolactone,,,,, PolyethYLENE,,,,, Stress Test Details Test: LEXISCAN HR Resting HR: 82 bpm Max Heart Rate (APMHR): 157 bpm Max HR Achieved: 90 bpm Target HR (85% APMHR): 133 bpm % of APMHR: 57 Recovery HR: 85 bpm BP Resting BP: 166.0/69.0 mmHg Max BP: 181.0/86.0 mmHg Recovery BP: 165.0/76.0 mmHg ECG Resting ECG: Sinus rhythm Stress ECG: No change Arrhythmia: PACs, PVCs Recovery ECG: No change Recovery Arrhythmia: PACs, PVCs Clinical Exercise duration: 04:03 min Highest Stage Achieved: Exercise capacity: n/a METs Stress ECG Conclusion Symptoms: Nausea Arrhythmias/Ectopy: PVCs, PACs ST-T Changes: No change Conclusion: Unremarkable Lexiscan stress test Myoview images are reported separately Test Summary REST . . . . . . . Resting REST 08:40 . . 82 . 166/ 69 . . Stage 1 . . . . . . . Myoview Injected Stage 1 01:00 . . 85 . . . . Stage 2 01:00 . . 82 . . . . Stage 3 01:00 . . 86 . 181/ 86 . . Stage 4 01:00 . . 87 . 174/ 82 . . Stage 4 01:03 . . 86 . 174/ 82 . Stop exercise at 04:03 RECOVERY 01:00 . . 84 . . . . RECOVERY 02:00 . . 86 . 168/ 72 . . RECOVERY 03:00 . . 85 . 168/ 72 . . RECOVERY 04:00 . . 86 . 164/ 80 . . RECOVERY 05:00 . . 85 . 164/ 80 . . RECOVERY 05:26 . . 85 . 165/ 76 . . Electronically signed by : Jennifer Herzog, 04/03/2023 15:11:01
== END ==
PROVIDERS: PCP Emergency Medicine; Visit Provider Nurse Practitioner Family
DX: R06.09 Other forms of dyspnea (principal); R42 Dizziness and giddiness; I50.9 Heart failure, unspecified; R60.9 Edema, unspecified; I73.9 Peripheral vascular disease, unspecified; G47.33 Obstructive sleep apnea (adult) (pediatric); E66.01 Morbid (severe) obesity due to excess calories; Z68.41 Body mass index [BMI] 40.0-44.9, adult; Z72.0 Tobacco use; J44.9 Chronic obstructive pulmonary disease, unspecified; Z86.79 Personal history of other diseases of the circulatory system; Z95.2 Presence of prosthetic heart valve
CPT/HCPCS: 78452; 93017; 93306; A9502; J2785

== ENCOUNTER 2023-04-06 14:56 | Emergency (ER) | payer OTHER, SELFPAY ==
[2023-04-06 15:00] VITALS: BP 125/66
[2023-04-06 15:07] VITALS: BP 129/56; PULSE 100; RESP 19; TEMP 36.6; O2SAT 95; BMI 44.8
[2023-04-06 15:30] VITALS: BP 124/64
--- NOTE | 2023-04-06 15:35 | CT_ITS ---
FINAL REPORT TECHNIQUE: Post contrast images of the abdomen and pelvis were performed by computed tomography. Extensive 3-D reconstruction images were performed. A CTA was performed. This study was performed with techniques to keep radiation doses as low as reasonably achievable (ALARA). Individualized dose reduction techniques using automated exposure control or adjustment of mA and/or kV according to the patient's size were employed. CLINICAL HISTORY: GI bleed COMPARISON: None FINDINGS: ABDOMEN: The heart is enlarged. There is a small right pleural effusion with associated lower lobe atelectasis. There are changes of mild pulmonary edema at the lung bases. The liver demonstrates subtle nodular contour. There is no focal liver lesion. The remaining solid abdominal organs are without acute abnormality. There is renal cortical scarring without hydronephrosis. There is no evidence of small bowel obstruction. There is colonic wall thickening. This is nonspecific in the setting of ascites. Colitis not excluded. The appendix is not visualized. There is a small amount of abdominal and pelvic ascites. No lymphadenopathy. CTA: The abdominal aorta is normal in caliber, without aneurysm. There is no dissection. There is atherosclerotic disease. There appeared to be stents in the celiac axis and superior mesenteric artery. They are patent. Branches of the celiac axis are patent. The inferior mesenteric artery is patent. The renal arteries are patent. There is likely stenosis at their origins bilaterally. The bilateral common iliac arteries, bilateral internal iliac arteries, and bilateral external iliac arteries are patent. There is atherosclerotic disease throughout. The common femoral artery on the right is occluded and there is reconstitution of the superficial femoral artery via collaterals. No site of active extravasation or active bleeding is identified. IMPRESSION: 1. No site of active bleeding in the GI tract identified. No extravasation of contrast. 2. Atherosclerotic disease without abdominal aortic aneurysm or dissection. 3. 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 4. Nodular liver, cirrhosis not excluded. 3. Long segment colonic wall thickening, nonspecific in the setting of ascites. Authenticated and ERN
--- NOTE | 2023-04-06 15:51 | PC.NURSE ---
pt undressed from the waist down for exam. call jacques within reach
[2023-04-06 15:52] LABS: Alanine Aminotransferase 20 U/L (12-78); Albumin Level 3.9 g/dl (3.5-5.0); Albumin/Globulin Ratio 1.1 (1.1-1.8); Alkaline Phosphatase 198 U/L (38-126); Anion Gap 7.9 mEq/L (5-15); Aspartate Amino Transferase 29 U/L (14-36); Basophils % 0.4 % (0.1-2.0); Bilirubin,Total 1.8 mg/dl (0.2-1.3); Blood Urea Nitrogen 9 mg/dl (7-17); Carbon Dioxide 31 mmol/L (22.0-30.0); Chloride 104 mmol/L (98-107); Creatinine Clearance Estimated 58 mL/min (50-200); Eosinophils # 0.2 K/mm3 (0.0-0.4); Eosinophils % 3.9 % (0.1-12.0); Estimated Glomerular Filt Rate 72 ml/min (>60); GFR (African American) 88 ML/MIN (>60); Globulin 3.6 g/dL (1.3-3.2); Glucose 142 mg/dl (74-100); Hematocrit 38.5 % (37.0-47.0); Hemoglobin 11.4 g/dL (12.2-16.2); Lymphocytes # 0.6 K/mm3 (0.7-4.5); Lymphocytes % 13.9 % (10-50); Mean Corpuscular HGB Conc 29.7 g/dL (31.8-35.4); Mean Corpuscular Volume 97.5 fl (81-99); Mean Platelet Volume 7.5 fl (7.4-10.4); Monocytes # 0.3 K/mm3 (0.1-1.0); Monocytes % 7.5 % (1.7-9.3); Neutrophils # 3.3 K/mm3 (1.8-7.8); Neutrophils % 74.2 % (37.0-80.0); Platelet Count 175 K/mm3 (142-424); Potassium 3.9 mmoL/L (3.5-5.1); Red Blood Count 3.95 M/mm3 (4.20-5.40); Red Cell Distribution Width 16.6 % (11.5-17.5); Sodium 139 mmol/L (136-145); Total Protein,Serum 7.5 g/dl (6.3-8.2); White Blood Count 4.5 K/mm3 (4.8-10.8)
[2023-04-06 15:57] LABS: INR 1.81 (0.9-1.1); Prothrombin Time 18.9 seconds (10.1-12.5)
--- NOTE | 2023-04-06 15:57 | PC.NURSE ---
pt to ct
--- NOTE | 2023-04-06 16:02 | [facility].ITSTN ---
spoke to lisha in ER about using labs from 10 days ago and she said yes that was fine
[2023-04-06 16:30] VITALS: BP 134/73; PULSE 90; O2SAT 97
[2023-04-06 16:40] LABS: Occult Blood,Stool Positive (Negative)
[2023-04-06 17:00] VITALS: BP 131/80; PULSE 92; O2SAT 99
--- NOTE | 2023-04-06 17:13 | PC.NURSE ---
Assumed pt care.
[2023-04-06 17:36] LABS: Lactic Acid 1.1 mmol/L (0.7-2.1)
--- NOTE | 2023-04-06 17:47 | [facility].EDGENADL ---
Discharge Plan Disposition Patient Disposition: Home, Self-Care Condition: Good Prescriptions Prescriptions: No Action albuterol sulfate 2.5 mg/0.5 mL solution for nebulization 5 mg inhalation Q6H gabapentin 800 mg tablet 800 mg PO 4XD albuterol sulfate [Proventil HFA] 90 mcg/actuation HFA aerosol inhaler 2 puff inhalation Q12H PRN (Reason: shortness of breath or wheezing) Qty: 8.5 2RF potassium chloride 10 mEq capsule, extended release 20 meq PO DAILY ferrous sulfate 324 mg (65 mg iron) tablet,delayed release (DR/EC) 324 mg PO DAILY cyclobenzaprine 10 mg tablet 10 mg PO TID atorvastatin 40 mg tablet See Rx Instructions .ROUTE .COMPLEX Rx Instructions: TAKE 1 TABLET BY MOUTH EVERY DAY bisoprolol fumarate 5 mg tablet 5 mg PO DAILY oxycodone-acetaminophen 10-325 mg tablet 1 tab PO TID pantoprazole 40 mg tablet,delayed release (DR/EC) See Rx Instructions .ROUTE .COMPLEX Rx Instructions: TAKE 1 TABLET BY MOUTH DAILY. ropinirole 0.5 mg tablet 0.5 mg PO HS Rx Instructions: administer 1-3 hours before bedtime folic acid 1 mg tablet 1 mg PO DAILY polyethylene glycol 3350 [Miralax] 17 gram/dose powder 17 g PO DAILY duloxetine 60 mg capsule,delayed release(DR/EC) See Rx Instructions .ROUTE .COMPLEX Rx Instructions: TAKE 1 CAPSULE BY MOUTH EVERY DAY lactulose 20 gram/30 mL solution 20 g PO DAILY Stiolto Respimat 2.5-2.5 mcg/actuation mist See Rx Instructions .ROUTE .COMPLEX Rx Instructions: INHALE 2 PUFFS BY MOUTH ONCE DAILY warfarin 10 mg tablet See Rx Instructions .ROUTE .COMPLEX Rx Instructions: Doctor's Order warfarin 5 mg tablet See Rx Instructions .ROUTE .COMPLEX Rx Instructions: Doctor's Order Referrals Follow up/Referrals: Provider,MD Jerri [Primary Care Provider] - See instructions Roberto Cruz MD [Staff Physician] - See instructions Activity Restrictions/Add. Instructions Additional Instructions/Restrictions: You were evaluated in the emergency department today. It is important that you follow-up closely with general surgery for further evaluation and management. Also follow-up with your primary care provider. Dr. Cruz would like to see you in clinic on Tuesday for repeat hemoglobin. Please call his office in the morning for further direction. Return to the emergency department for any new or worsening symptoms. Clinical Impressions Clinical Impression: BRBPR (bright red blood per rectum) Instructions Patient Instructions: DI for Gastrointestinal Bleeding Discharge ED Provider: Rekha Gray General Adult HPI General Chief complaint: GI Bleed Stated complaint: gi bleed Time Seen by Provider: 04/06/23 15:21 Mode of Arrival: EMS Source of Information: Patient and EMS Limitations: No Limitations Description of Symptoms (Recalled from ER Triage Doc. by RN): 63 yo F presents to ED with c/o rectal bleeding. pt reports she has had bleeding for 3 days. pt does have hx of chronic constipation. pt does take blood thinner. History of Present Illness HPI narrative: This patient is a 63-year-old female with a history of valve replacement on Coumadin, GI bleed, obesity, WILFREDO, CHF, and COPD presenting to the emergency department for evaluation of bright red blood per rectum. She states this has been going on for 3 to 4 days when she has a bowel movement. It is mostly on the toilet paper but there is also some in the toilet bowl. Nothing seems to make it better or worse. She notes that she has a history of GI bleed in the past for which she required scope, and she states that they found something abnormal but she cannot remember what this was. She denies any lightheadedness, chest pain, shortness of breath, abdominal pain, nausea, vomiting, or other concerns. Patient denies any history of liver disease or varices. Related Data Home Medications
[2023-04-06 18:07] VITALS: BP 118/62; PULSE 94; RESP 20; TEMP 36.6; O2SAT 93
== END 2023-04-06 18:10 | disposition home or self-care (01) ==
PROVIDERS: Emergency Provider Emergency Medicine
DX: K92.2 Gastrointestinal hemorrhage, unspecified (principal); I50.9 Heart failure, unspecified; J44.9 Chronic obstructive pulmonary disease, unspecified; G47.33 Obstructive sleep apnea (adult) (pediatric); F17.200 Nicotine dependence, unspecified, uncomplicated; Z79.01 Long term (current) use of anticoagulants
CPT/HCPCS: 36415; 74174; 80053; 82272; 83605; 85025; 85610; 86850; 96361; 96365; 99285; G0328; Q9967

== ENCOUNTER → 2023-04-13 13:25 | Outpatient (CLI) | payer OTHER, SELFPAY ==
[2023-04-13 14:10] LABS: Hematocrit 39.2 % (37.0-47.0); Hemoglobin 11.9 g/dL (12.2-16.2)
== END ==
PROVIDERS: PCP Emergency Medicine; Visit Provider Surgery
DX: D64.9 Anemia, unspecified (principal)
CPT/HCPCS: 36415; 85014; 85018